=== PATIENT | male | born 2000 | race Caucasian/White ===

== ENCOUNTER 2020-10-03 22:01 | Emergency (ER) | payer OTHER, SELFPAY ==
[~2020-10-03] VITALS: Ht 172.7 cm; Wt 64.4 kg
[2020-10-03 22:25] VITALS: BP 133/97
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
== END 2020-10-03 22:42 | disposition short-term general hospital (02) ==
LOC: ED 22:25
DX: S99.912A Unspecified injury of left ankle, initial encounter (principal); S69.91XA Unspecified injury of right wrist, hand and finger(s), initial encounter; R00.0 Tachycardia, unspecified; W18.30XA Fall on same level, unspecified, initial encounter; Y93.89 Activity, other specified; Y92.89 Other specified places as the place of occurrence of the external cause; Y99.8 Other external cause status
CPT/HCPCS: 93005; 99285